=== PATIENT | female | born 1955 | race Native Hawaiian/Other Pacific Islander ===

== ENCOUNTER 2018-07-19 14:15 | Emergency (ER) | payer OTHER ==
[~2018-07-19] VITALS: Ht 175.3 cm; Wt 54.9 kg
[2018-07-19 15:22] LABS: PLATELET COUNT 353 K/uL (152-353)
[2018-07-19 16:04] LABS: POTASSIUM 4.4 mmol/L (3.6-5.2)
[2018-07-19 16:20] VITALS: BP 149/70; TEMP 97.9
[2018-07-19] MEDS ORDERED: CLONIDINE HCL0.1 MG PO (17:01)
[2018-07-19] MEDS ORDERED: TEMA15CA19 PO (17:02)
[2018-07-19] MEDS ORDERED: TYLENOL325 MG PO (17:04)
[2018-07-19] MEDS ORDERED: [UNRECOGNIZED DRUG - REMARK] PO (17:06)
[2018-07-19] MEDS ORDERED: MAGNSUS68 PO (17:06)
[2018-07-19] MEDS ORDERED: LEVALBUTER1.25 MG/0. INH (17:08)
[2018-07-19] MEDS ORDERED: BISAC-EVAC10 MG RE (17:09)
[2018-07-19] MEDS ORDERED: HALO5INJ3 IM (17:10)
[2018-07-19] MEDS ORDERED: PANTOPRAZOLE 40MG TA PO (17:11)
[2018-07-19] MEDS ORDERED: LEVO0.0218 PO (17:12)
[2018-07-19] MEDS ORDERED: VITAMIN C 500 M1 TAB PO (17:12)
[2018-07-19] MEDS ORDERED: TIZA4TAB5 PO (17:13)
[2018-07-19] MEDS ORDERED: DOCU100C10 PO (17:14)
[2018-07-19] MEDS ORDERED: LISI5TAB10 PO (17:14)
[2018-07-19] MEDS ORDERED: FERROUS SULF325 M1 PO (17:16)
[2018-07-19] MEDS ORDERED: [UNRECOGNIZED DRUG - OTHER] PO (17:17)
[2018-07-19] MEDS ORDERED: CARV6.25 PO (17:18)
[2018-07-19] MEDS ORDERED: ROWEEPRA XR500 MG PO (17:18)
[2018-07-19] MEDS ORDERED: SOD CHLORIDE1 GM PO (17:19)
[2018-07-19] MEDS ORDERED: KLOR-CON M2020 MEQ PO (17:21)
[2018-07-19] MEDS ORDERED: TOPAMAX100 MG PO (17:21)
[2018-07-19] MEDS ORDERED: PRAVACHOL20 MG PO (17:22)
[2018-07-19] MEDS ORDERED: SEROQUEL200 MG PO (17:23)
[2018-07-19] MEDS ORDERED: [UNRECOGNIZED DRUG - CODE] IM (17:24)
== END 2018-07-19 16:20 | disposition other institution (70) ==
LOC: ED 14:15
PROVIDERS: Family Medicine
DX: R46.89 Other symptoms and signs involving appearance and behavior (principal); F20.89 Other schizophrenia; Z04.6 Encounter for general psychiatric examination, requested by authority
CPT/HCPCS: 36415; 80053; 81000; 85027; 93005; 99285